=== PATIENT | female | born 1935 | race Caucasian/White ===

== ENCOUNTER 2024-05-15 01:55 | Inpatient (IN) | payer MEDICARE, BC, SELFPAY ==
[2024-05-15] VITALS (18 sets, daily range): BP systolic 110–196; BP diastolic 45–84; PULSE 64–78; RESP 16–24; TEMP 36.4–37.4; O2SAT 89–100; BMI 27.6
--- NOTE | ~2024-05-15 | XR_ITS ---
EXAMINATION: XR surgery orthopedic DATE: 05/15/2024 17:00 INDICATION: Intertrochanteric fracture of proximal left femur. TECHNIQUE: 4 intraoperative fluoroscopic views of left femur were obtained. I was not present. Fluoro scopy exposure time was 3 minutes 27 seconds. COMPARISON: Left hip radiographs 05/14/2024 FINDINGS: There is an intertrochanteric fracture of proximal left femur in near-anatomic alignment st atus post open reduction internal fixation with antegrade intramedullary lidia, femoral head/neck screw , and distal interlocking screw. There is mild left hip osteoarthritis. IMPRESSION: 1. Intertrochanteric fracture of proximal left femur status post open reduction internal fixation. 2. Mild left hip osteoarthritis. Reviewed, dictated and finalized at location A.
--- NOTE | 2024-05-15 01:40 | ADMGEN ---
This patient, Karla Powers, was admitted to 3 Med Surg Room 303-01. Patient/family oriented to hospital policies and general routines including ID bracelet, bed and alarms, visiting hours, pain management, procedures, bathroom and other care routines, personal items, smoking policy, room service/diet, and visiting hours. Information on how to activate the Rapid Response Team has been discussed. Patient/Family are encouraged to report perceived risks to care and to ask questions if they do not understand what they are told or what they should do.
--- NOTE | 2024-05-15 02:03 | PM.IMHP ---
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, wet, right eye CKD (chronic kidney disease) stage 3, GFR 30-59 ml/min Dental root implant present Essential hypertension GERD (gastroesophageal reflux disease) Gout Peripheral artery disease Skin cancer of face Surgical History Surgical History (Updated 05/15/24 @ 05:27 by Brenda Leon DO) History of appendectomy History of total abdominal hysterectomy and bilateral salpingo-oophorectomy Hx of cholecystectomy Status post cataract extraction of both eyes with insertion of intraocular lens Status post reverse arthroplasty of left shoulder (~2019) Family History Family History Sibling Colon polyp Cancer Hypertension Sibling Breast cancer Father Hypertension Mother Hypertension Social History Social History (Updated 05/15/24 @ 05:32 by Brenda Leon DO) Social History: She reports that she lives alone. She was twice 1st time for 48 for 6 years and she has been for about 16 years now. She is independent in all activities of daily living. She has 2 daughters and 2 sons. She also has 4 step children. She was a homemaker. She smoked 0.5 packs per cigarettes per day for 35 years but quit smoking in 1985. She denies any history of alcohol use or illicit substance use. Code status: DNR/DNI Healthcare power of tax associate attorney: Travis Butler (son) Smoking packs per day: 0.5 Smoking cigarettes per day: 10.0 Years smoked: 40 Smoking pack-years: 20.00 Smoking status: Former smoker Alcohol intake: never Do You Feel Safe in your Home?: Yes Lack of Transportation: No Lack of Food: Never True Current Housing: I Have Housing Concerned About Future Housing: No Difficulty Paying Gas/Electric Bills: No Difficulty Paying for Meds: No Currently Unemployed: No Education: High School Diploma/GED Difficulty w/ Childcare or Family Care: No Spiritual care concerns: No Meds Home Medications and Allergies Home Medications Medication Instructions Recorded Confirmed Type acetaminophen 650 mg tablet 650 mg PO Q8H PRN Pain 05/15/24 05/15/24 History allopurinol 300 mg tablet 300 mg PO DAILY 05/15/24 05/15/24 History clonidine HCl 0.1 mg tablet 0.1 mg PO DAILY 05/15/24 05/15/24 History hydrochlorothiazide 25 mg tablet 25 mg PO DAILY 05/15/24 05/15/24 History losartan 100 mg tablet 100 mg PO DAILY 05/15/24 05/15/24 History nebivolol 20 mg tablet 20 mg PO DAILY 05/15/24 05/15/24 History omeprazole 40 mg capsule,delayed 40 mg PO DAILY 05/15/24 05/15/24 History release spironolactone 25 mg tablet 25 mg PO DAILY 05/15/24 05/15/24 History vit C 250 mg-vit E 90 mg-zinc 40 1 tablet PO BID 05/15/24 05/15/24 History mg-copper 1 [id number] capsule (PreserVision AREDS-2) Allergies Allergy/AdvReac Type Severity Reaction Status Date / Time No Known Allergies Allergy Verified 05/15/24 01:21 Vital Signs Vital Signs - 24 hr 05/15/24 01:28 05/15/24 01:33 Temperature 98.9 F Pulse Rate 66 Respiratory Rate 16 Blood Pressure 184/58 H Pulse Oximetry 100 100 Oxygen Delivery Nasal Cannula Oxygen Flow Rate 2 Exam Narrative: Weight 75.3 kg BMI 27.6 Const: Other: Lying in bed with head of bed at 25-30 degrees, appears uncomfortable, otherwise well-developed well-nourished, appears stated age HENMT: Other: Head is normocephalic atraumatic, pupils are equal and reactive, mild scleral icterus, no conjunctival pallor, dental implants in place, mucous membran
[2024-05-15] MEDS: MORPHINE SULFATE (*CRX) 2 MG/ML INJ IV PUSH (02:41)
--- NOTE | 2024-05-15 02:46 | PC.NURSE ---
Pt brought from [facility] via EMS. Vizcaino catheter and 20g IV in RAC present on arrival. Pt CO pain in L hip once we moved her from the bed to the stretcher. Pt BP on arrival to the unit was documented 184/58. Pt laying on multiple extra blankets from EMS ride- attempted to turn patient to remove excess blankets but pt unable to tolerate due to pain. I asked pt if she was comfortable and she stated yes and that the extra blankets didn't bother her. Will attempt to remove them at a later time when pain is controlled.
[2024-05-15 03:24] LABS: Basophils Percent Auto 0.3 % (0.2-1.2); Eosinophils Percent Auto 0.2 % (0-4.4); Hematocrit 33.9 % (37.0-47.0); Hemoglobin 11.3 g/dL (12.0-15.0); Immature Granulocyte Percent A 0.8 % (0-0.5); Lymphocytes Absolute Auto 0.85 K/mm3 (0.9-3.2); Mean Corpuscular HGB Conc 33.3 g/dl (32-36); Mean Corpuscular Hemoglobin 32.6 pg (26-34); Mean Corpuscular Volume 97.7 fl (80-100); Mean Platelet Volume 9.6 fl (7.4-10.4); Monocytes Absolute Auto 0.9 K/mm3 (0.1-0.6); Monocytes Percent Auto 7.8 % (2.6-8.5); Neutrophils Absolute Auto 10.2 K/mm3 (1.3-6.7); Neutrophils Percent Auto 83.9 % (45.5-73.1); Platelet Count Result 177 k/mm3 (150-375); Red Blood Count 3.47 M/mm3 (4.2-5.4); Red Cell Distribution Width 13.6 % (11.5-14.5); White Blood Count 12.1 K/mm3 (4.5-10.0)
[2024-05-15 03:33] LABS: Anion Gap 7 mmol/L (4-12); Blood Urea Nitrogen 25 mg/dL (7-17); Calcium 9.5 mg/dL (8.4-10.2); Carbon Dioxide 26 mmol/L (22-30); Chloride 99 mmol/L (98-107); Estimated CRCL calculation 32 ml/min; Estimated Glomerular Filt Rate 47; Glucose 124 mg/dL (65-110); Potassium 4.9 mmol/L (3.4-5.0); Sodium 132 mmol/L (137-145)
[2024-05-15 03:35] LABS: Prothrombin Time 13.5 Seconds (11.1-14.7)
[2024-05-15 03:36] LABS: Partial Thromboplastin Time 28.8 Seconds (22.3-36.8)
[2024-05-15] MEDS: cloNIDine HCL 0.1 MG TABLET PO (05:37)
[2024-05-15] MEDS: hydrALAZINE HCL 20 MG/ML VIAL 10 MG IV PUSH ×2 (06:52→09:52)
--- NOTE | 2024-05-15 09:44 | PC.NURSE ---
RN called PRE-OP to ask the medication that the pt can get before sx and was informed that pt can get bystolic, iv hydralizine for elevated bp and Klonopin per Dr. Arriola for anxiety.
--- NOTE | 2024-05-15 09:47 | PC.NURSE ---
RN didn't give clonodine because pt got a one time dose in the morning from cabin supervisor for elevated BP
[2024-05-15] MEDS: HYDROcodone/acetaminophen (*CRX) 5-325 MG TABLET 1 TAB PO (09:49)
[2024-05-15] MEDS: NEBIVOLOL HCL 5 MG TABLET 20 MG PO (09:51)
--- NOTE | 2024-05-15 11:28 | PM.CNOR ---
Assessment and Plan Assessment and plan (1) Intertrochanteric fracture of left femur: Qualifiers: Encounter type: initial encounter Fracture type: closed Fracture alignment: displaced Qualified Code(s): S72.142A - Displaced intertrochanteric fracture of left femur, initial encounter for closed fracture Code(s): S72.142A - Displaced intertrochanteric fracture of left femur, initial encounter for closed fracture Status: Acute Plan EMILY IS S/P FALL TO THE LEFT HIP REGION AND NOW SHE HAS A DISPLACED LEFT INTER TROCHANTERIC FEMUR FRACTURE. SH WILL REQUIRE INSERTION OF TROCHANTERIC SHRAVAN WITH HIP SCREW ONCE SHE HAS BEEN CLEARED BY THE MEDICINE SERVICE. DISCUSSED NONOPERATIVE AND OPERATIVE TREATMENT OPTIONS WITH THE PATIENT. THE PATIENT'S QUESTIONS WERE ANSWERED. THE PATIENT DESIRES OPERATIVE TREATMENT. DISCUSSED ___INSERTION OF TROCHANTERIC FEMORAL SHRAVAN LEFT HIP. RISKS OF SURGERY INCLUDING BUT NOT LIMITED TO NEUROVASCULAR DAMAGE, WOUND COMPLICATIONS, BLOOD CLOT, PULMONARY EMBOLUS, STROKE, MD, ANESTHETIC RISKS UP TO AND INCLUDING WERE REVIEWED. CONTINUED PAIN AND POSSIBLE DYSFUNCTION WERE EXPLAINED. NO GUARANTEES WERE OFFERED. THE PATIENT UNDERSTANDS AND WISHES TO PROCEED. History of Present Illness HPI Consult date: 05/15/24 Chief complaint: left hip fracture mechanical Narrative: EMILY IS HERE FOR LEFT HIP PAIN SHE DEVELOPED AFTER FALLING TO THE GROUND. SHE HD LEFT HIP PAIN AND WAS SENT TO [facility]. SHE WAS TRANSFERRED TO [place] LAST EVENING AND DIAGNOSED WITH A LEFT INTER TROCHANTERIC HIP FRACTURE. SHE DENIES ANY OTHER PAIN OR LOC. HISTORY, EXAM AND RADIOGRAPHS REVIEWED WITH THE PATIENT. REFERRING PHYSICIAN RECORDS AND IMAGES REVIEWED. CONDITION, NATURE, ETIOLOGY AND COURSE OF NATURAL HISTORY REVIEWED. CONSERVATIVE AND OPERATIVE TREATMENT OPTIONS REVIEWED WELL THE RISKS AND BENEFITS OF EACH. 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, wet, right eye CKD (chronic kidney disease) stage 3, GFR 30-59 ml/min Dental root implant present Essential hypertension GERD (gastroesophageal reflux disease) Gout Peripheral artery disease Skin cancer of face Surgical History Surgical History History of appendectomy History of total abdominal hysterectomy and bilateral salpingo-oophorectomy Hx of cholecystectomy Status post cataract extraction of both eyes with insertion of intraocular lens Status post reverse arthroplasty of left shoulder (~2019) Family History Family History Sibling Colon polyp Cancer Hypertension Sibling Breast cancer Father Hypertension Mother Hypertension Social History Social History Social History: She reports that she lives alone. She was twice 1st time for 48 for 6 years and she has been for about 16 years now. She is independent in all activities of daily living. She has 2 daughters and 2 sons. She also has 4 step children. She was a homemaker. She smoked 0.5 packs per cigarettes per day for 35 years but quit smoking in 1985. She denies any history of alcohol use or illicit substance use. Code status: DNR/DNI Healthcare power of corporate attorney: Travis Butler (son) Smoking packs per day: 0.5 Smoking cigarettes per day: 10.0 Years smoked: 40 Smoking pack-years: 20.00 Smoking status: Former smoker Alcohol intake: never Do You Feel Safe in your Home?: Yes Lack of Transportation: No Lack of Food: Never True Current Housing: I Have Housing Concerned About Future Housing: No Difficulty Paying Gas/Electric
[2024-05-15] MEDS: clonazePAM (*CRX) 0.5 MG TABLET PO (12:16)
--- NOTE | 2024-05-15 12:36 | PM.IMPN ---
Progress Note: A&P Assessment and Plan (1) Intertrochanteric fracture of left femur: Qualifiers: Encounter type: initial encounter Fracture type: closed Fracture alignment: displaced Qualified Code(s): S72.142A - Displaced intertrochanteric fracture of left femur, initial encounter for closed fracture Code(s): S72.142A - Displaced intertrochanteric fracture of left femur, initial encounter for closed fracture Status: Acute Assessment and Plan: Pt sustained L intertrochanteric fracture Bp running slightly high this AM Control BP in Am IV hydralazine, clonidine, IV morphine and oral Klonopin on board Pt to have surgery this afternoon Orthopedics on board (2) CKD (chronic kidney disease) stage 3, GFR 30-59 ml/min: Qualifiers: Chronic kidney disease stage 3 subtype: stage 3a (GFR 45-59) Qualified Code(s): N18.31 - Chronic kidney disease, stage 3a Code(s): N18.30 - Chronic kidney disease, stage 3 unspecified Status: Acute Assessment and Plan: stable (3) Gout: Qualifiers: Gout site: unspecified site Gout etiology: unspecified cause Chronicity: chronic Presence of tophus: without tophus Qualified Code(s): M1A.9XX0 - Chronic gout, unspecified, without tophus (tophi) Code(s): M10.9 - Gout, unspecified Status: Acute Assessment and Plan: stable (4) Essential hypertension: Code(s): I10 - Essential (primary) hypertension Status: Acute Assessment and Plan: running high ? pain ? anxiety (5) GERD (gastroesophageal reflux disease): Qualifiers: Esophagitis presence: esophagitis presence not specified Qualified Code(s): K21.9 - Gastro-esophageal reflux disease without esophagitis Code(s): K21.9 - Gastro-esophageal reflux disease without esophagitis Status: Acute Assessment and Plan: protonix iv Subjective Date/time seen: 05/15/24 12:36 Interval history: 89-year-old female with past medical history of essential hypertension, gout, GERD, chronic kidney disease and peripheral vascular disease sustained Intertrochanteric fracture of left femur Blood pressures running high this morning pt given iv hydralazine for high blood pressures Review of Systems Review of Systems: L hip pain no other specific issues Exam Narrative: Weight 75.3 kg BMI 27.6 Const: Other: Lying in bed with head of bed at 25-30 degrees, appears uncomfortable, otherwise well-developed well-nourished, appears stated age HENMT: Other: Head is normocephalic atraumatic, pupils are equal and reactive, mild scleral icterus, no conjunctival pallor, dental implants in place, mucous membranes are dry, crowded posterior oropharynx Eyes: Other: Mild scleral icterus, no conjunctival pallor Neck: Other: Mild cervical lordosis, supple, large neck circumference Resp: Other: Clear to auscultation bilaterally, no increased work of breathing Cardio: Other: 2/6 systolic murmur heard best over the left upper sternal border, no JVD, 2+ bilateral radial pedal pulses GI: Other: Soft, nontender, slightly distended, normoactive bowel sounds : Other: Vizcaino catheter in place with approximately 600 mL of slightly cloudy pale yellow urine Skin: Other: Skin tear to the left proximal lateral forearm with Coban covering, scab about the size of a half dollar to the right anterior hernández chronic skin thickening and changes of bilateral lower extremities circumferential, no erythema, no warmth, wound to the left 5th old, no erythema or drainage Neuro: Other: Alert orient x4, speech is clear, no facial asymmetry, no localizing neurologic deficits noted during the course of conversation Extrem: Other: Left lower extremity is flexed at the knee externally rotated and shortened, distal extremity is neurovascularly intact, age-related arthritic changes noted to b
--- NOTE | 2024-05-15 15:05 | PC.NURSE ---
Pt was picked up by surgery and is not in room
[2024-05-15] MEDS: LACTATED RINGERS 1,000 ML 30 ML IV CONT (15:30)
--- NOTE | 2024-05-15 15:30 | WPDANESEPPF ---
Anes - Initial Pre Proc Eval Procedure: Operation Date: 05/15/24 16:30 Proposed Procedures p Trochanteric Femoral Nail Left Hip - Brian Montesinos MD Date/Time: 05/15/24 15:30 Surgeon: Brenda Leon DO Pre Op Diagnosis: left hip fracture mechanical Patient Data Age: 89 Gender: F Height: 1.65 m Weight: 75.3 kg Last Vital Signs Temp 36.6 C 05/15/24 14:00 Pulse 64 05/15/24 14:00 Resp 20 05/15/24 14:00 BP 152/46 H 05/15/24 14:00 Pulse Ox 99 05/15/24 14:00 O2 Del Method Nasal Cannula 05/15/24 08:00 O2 Flow Rate 2 05/15/24 08:00 Allergies Allergy/AdvReac Type Severity Reaction Status Date / Time No Known Allergies Allergy Verified 05/15/24 01:21 Home Medications Medication Instructions Recorded Confirmed Type acetaminophen 650 mg tablet 650 mg PO Q8H PRN Pain 05/15/24 05/15/24 History allopurinol 300 mg tablet 300 mg PO DAILY 05/15/24 05/15/24 History clonidine HCl 0.1 mg tablet 0.1 mg PO DAILY 05/15/24 05/15/24 History hydrochlorothiazide 25 mg tablet 25 mg PO DAILY 05/15/24 05/15/24 History losartan 100 mg tablet 100 mg PO DAILY 05/15/24 05/15/24 History nebivolol 20 mg tablet 20 mg PO DAILY 05/15/24 05/15/24 History omeprazole 40 mg capsule,delayed 40 mg PO DAILY 05/15/24 05/15/24 History release spironolactone 25 mg tablet 25 mg PO DAILY 05/15/24 05/15/24 History vit C 250 mg-vit E 90 mg-zinc 40 1 tablet PO BID 05/15/24 05/15/24 History mg-copper 1 [id number] capsule (PreserVision AREDS-2) Laboratory Tests 05/15/24 05/15/24 03:16 03:16 WBC 12.1 H K/mm3 (4.5-10.0) RBC 3.47 L M/mm3 (4.2-5.4) Hgb 11.3 L g/dL (12.0-15.0) Hct 33.9 L % (37.0-47.0) MCV 97.7 fl (80-100) MCH 32.6 pg (26-34) MCHC 33.3 g/dl (32-36) RDW 13.6 % (11.5-14.5) Plt Count 177 k/mm3 (150-375) MPV 9.6 fl (7.4-10.4) Immature Gran % (Auto) 0.8 H % (0-0.5) Neut % (Auto) 83.9 H % (45.5-73.1) Lymph % (Auto) 7.0 L % (18.3-44.2) Pitkin % (Auto) 7.8 % (2.6-8.5) Eos % (Auto) 0.2 % (0-4.4) Baso % (Auto) 0.3 % (0.2-1.2) Lymph # (Auto) 0.85 L K/mm3 (0.9-3.2) Pitkin # (Auto) 0.9 H K/mm3 (0.1-0.6) Eos # (Auto) 0.0 K/mm3 (0-0.3) Baso # (Auto) 0.0 K/mm3 (0.0-0.1) Abs Immat Gran (auto) 0.10 H K/mm3 (0.00-0.031) Absolute Neuts (auto) 10.2 H K/mm3 (1.3-6.7) Absolute Nucleated RBC 0.000 K/mm3 (0.0-0.012) Nucleated RBC % 0.0 % (0.0-0.2) PT 13.5 Seconds (11.1-14.7) INR 1.0 APTT 28.8 Seconds Cancelled (22.3-36.8) Sodium 132 L mmol/L (137-145) Potassium 4.9 mmol/L (3.4-5.0) Chloride 99 mmol/L (98-107) Carbon Dioxide 26 mmol/L (22-30) Anion Gap 7 mmol/L (4-12) BUN 25 H mg/dL (7-17) Creatinine 1.10 H mg/dL (0.7-1.0) Estim Creat Clear Calc 32 ml/min Estimated GFR 47 L (59 - ) Glucose 124 H mg/dL (65-110) Calcium 9.5 mg/dL (8.4-10.2) Patient hx anesthesia problems: none Family hx anesthesia problems: none Results Review: All pre-operative results and documents have been reviewed as part of the pre-operative evaluation. 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
[2024-05-15] MEDS: ceFAZolin SODIUM 1 GM VIAL 2 GM IV PUSH (16:28)
--- NOTE | 2024-05-15 17:14 | P.OP_ITS ---
Procedure Note - Detailed Date of Procedure 05/15/24 Pre-op Diagnosis left hip fracture mechanical Post-op Diagnosis Same Procedure Performed INSERTION OF TROCHANTERIC SHRAVAN LEFT HIP Surgeon Brian Montesinos MD Anesthesia General Description of Procedure THE PATIENT WAS TAKEN TO THE OPERATING ROOM AND PLACED ON A FRACTURE TABLE AFTER GIVEN GENERAL ANESTHESIA. THE LEFT LOWER EXTREMITY WAS PLACED IN A TRACTION BOOT AND USING SOME TRACTION AND INTERNAL ROTATION THE INNER TROCHANTERIC FRACTURE WAS REDUCED TO ANATOMIC POSITION. NEXT THE LEFT LOWER EXTREMITY WAS PREPPED AND DRAPED IN THE STERILE FASHION. AN INCISION WAS MADE PROXIMAL TO THE TIP OF THE GREATER TROCHANTER AND DISSECTION CONTINUED TILL THE TIP OF THE GREATER TROCHANTER WAS PALPATED. A GUIDE PIN WAS PLACED DOWN THE FEMORAL CANAL AND PAST THE FRACTURE SITE. THIS WAS CHECKED ON FLUOROSCOPY AND FOUND TO BE IN GOOD POSITION. AN INITIAL REAMER WAS USED TO REAM THE FEMORAL CANAL. A 11 BY 200 MM ARTHREX TROCHANTERIC FEMORAL SHRAVAN WAS INSERTED TILL THE CORRECT POSITION WAS IDENTIFIED ON XRAY. A GUIDE PIN WAS INSERTED THROUGH THE FEMORAL NECK AT 130 DEG ANGLE TILL IT REACHED THE TIP OF THE SUB CHONDRAL BONE SEEN ON XRAY. AFTER REAMING, LAG SCREW WAS INSERTED MEASURING 95 MM. XRAYS SHOWED IT TO BE IN GOOD POSITION. THE LAG SCREW WAS LOCKED PROXIMALLY WITH A LOCKING SCREW. NEXT A DISTAL LOCKING SCREW WAS PLACED ACROSS THE SHRAVAN AND WAS IN GOOD POSITION ON XRAY. THE TRACTION WAS RELEASED. THE WOUNDS WERE WASHED. THE DEEP FASCIA WAS REPA IRED WITH 0 VICRYL SUTURE, THE SUB CUTANEOUS LAYER WITH 2-0 VICRYL, AND THE SKIN WITH RENETTA. THE WOUNDS WERE WASHED AND THEN STERILE DRESSING WAS APPLIED. PATIENT WAS EXTUBATED AND SENT TO RECOVERY ROOM. Estimated Blood Loss 100 Urine Output 700 Complications No immediate complications Condition Stable Disposition PACU
[2024-05-15] MEDS: fentaNYL CITRATE INJ (*CRX) 100 MCG/2 ML VIAL 25 MCG IV PUSH ×3 (17:26→17:48)
--- NOTE | 2024-05-15 18:40 | PC.NURSE ---
Pt has returned from surgery.
[2024-05-15] MEDS: FAMOTIDINE 20 MG TABLET PO (20:44)
[2024-05-15] MEDS: oxyCODONE/ACETAMINOPHEN (*CRX) 5-325 MG TABLET 1 TABLET PO (20:45)
[2024-05-16] VITALS (9 sets, daily range): BP systolic 120–180; BP diastolic 46–73; PULSE 61–87; RESP 16–20; TEMP 36.4–37.2; O2SAT 93–100
--- NOTE | 2024-05-16 | ECHOL_ITS ---
Patient Info Name: Karla Powers Age: 89 years : 1935 Gender: Female Ht: 65 in Wt: 166 lbs BSA: 1.88 m2 HR: 61 bpm BP: 126 / 46 mmHg Heart Rhythm: Sinus Rhythm Technical Quality: Fair Exam Date: 05/16/2024 1:40 PM Exam Location: Echo Lab Patient Status: Inpatient Admit Date: 05/15/2024 Staff Ordering Physician: Francia Arriola MD Protohistorian: Karolina Tovar RDCS Attending Provider: Brenda Leon DO Referring Physician: Zeinab BARKLEY; Exam Type: CA echo limited Study Info Indications - elevated bp Complete two-dimensional, color flow and Doppler transthoracic echocardiogram is performed. Summary 1. Technically difficult study with limited views due to poor patient cooperation. 2. The left ventricular diastolic function is grade I diastolic dysfunction. 3. Left atrial chamber dimension is moderately enlarged. 4. Right atrial chamber dimension is moderately enlarged. 5. There is moderate tricuspid valve regurgitation. 6. There is small anterior pericardial effusion. Left Ventricle Left ventricular chamber dimension is normal. Left ventricular systolic function is normal, estimated at 65-70%. There is no increased left ventricular wall thickness. The left ventricular diastolic function is grade I diastolic dysfunction. Right Ventricle Right ventricular chamber dimension is not well visualized. Left Atria Left atrial chamber dimension is moderately enlarged. Right Atria Right atrial chamber dimension is moderately enlarged. Atrial Septum Intact interatrial septum visualized by color flow imaging. Aortic Valve The aortic valve is probable trileaflet. There is no aortic valve stenosis. There is no aortic valve regurgitation. There is mild aortic valve calcification. Pulmonic Valve The pulmonic valve is not well visualized. Mitral Valve There is trace mitral valve regurgitation. Tricuspid Valve There is moderate tricuspid valve regurgitation. Pericardium/Pleural There is small anterior pericardial effusion. Inferior Vena Cava Inferior vena cava is not well visualized. Aorta The aortic root size at the sinus of Valsalva is normal. Left Ventricular Outflow Tract Name Value Normal LVOT 2D LVOT Diameter 2.0 cm LVOT Doppler LVOT Peak Gradient 4 mmHg LVOT Mean Gradient 2 mmHg LVOT VTI 21 cm LVOT VTI/AV VTI Ratio 0.8 LVOT Stroke Volume 63 ml LVOT CO 4.4 l/min LVOT CI 2.4 l/min/m2 Pulmonic Valve Name Value Normal RVOT Doppler RVOT Peak Gradient 3 mmHg PV Doppler PV Peak Gradient 6 mmHg Mitral Valve Nam
[2024-05-16] MEDS: hydrALAZINE HCL 20 MG/ML VIAL 10 MG IV PUSH (00:30)
[2024-05-16] MEDS: ceFAZolin 2 GM/D5W 50 ML 2 GM/50 ML BAG IVPB ×3 (00:34→16:52)
[2024-05-16] MEDS: diphenhydrAMINE HCl INJ 50 MG/ML VIAL 25 MG IV PUSH ×3 (01:20→14:21)
[2024-05-16] MEDS: SODIUM CHLORIDE 0.9% IV 1,000 ML 125 ML IV CONT ×2 (01:21→14:15)
[2024-05-16] MEDS: HYDROmorphone HCL INJ (*CRX) 1 MG/ML SYR IV PUSH ×4 (02:49→22:52)
[2024-05-16 06:46] LABS: Hematocrit 34.4 % (37.0-47.0); Mean Corpuscular Hemoglobin 32.2 pg (26-34); Mean Corpuscular Volume 100.6 fl (80-100); Mean Platelet Volume 10.3 fl (7.4-10.4); Platelet Count Result 203 k/mm3 (150-375); Red Blood Count 3.42 M/mm3 (4.2-5.4); Red Cell Distribution Width 14.2 % (11.5-14.5); White Blood Count 14.9 K/mm3 (4.5-10.0)
[2024-05-16 07:01] LABS: Anion Gap 12 mmol/L (4-12); Blood Urea Nitrogen 30 mg/dL (7-17); Calcium 9.3 mg/dL (8.4-10.2); Carbon Dioxide 23 mmol/L (22-30); Chloride 99 mmol/L (98-107); Estimated CRCL calculation 25 ml/min; Estimated Glomerular Filt Rate 35; Glucose 129 mg/dL (65-110); Potassium 4.2 mmol/L (3.4-5.0); Sodium 134 mmol/L (137-145)
--- NOTE | 2024-05-16 09:31 | PM.PNORT ---
Progress Note: A&P Assessment and Plan (1) Intertrochanteric fracture of left femur: Qualifiers: Encounter type: initial encounter Fracture type: closed Fracture alignment: displaced Qualified Code(s): S72.142A - Displaced intertrochanteric fracture of left femur, initial encounter for closed fracture Code(s): S72.142A - Displaced intertrochanteric fracture of left femur, initial encounter for closed fracture Status: Acute Assessment and Plan: POD #1 : INSERTION OF TROCHANTERIC SHRAVAN LEFT HIP PT/OT once mentation is improved. TTWB. Walker. HIGH FALL RISK. Continue pain control. Ice hip. Protect skin. DVT prophylaxis with Arixtra. Possible transition to oral at d/c. SCDs. Incentive Spirometry Use reviewed. Monitor Dressing. Change prior to discharge. Bowel Regimen. Dispo: KEITH Plan Reviewed history, exam, radiographs and current labs with attending MD and covering surgeon, Dr. Montesinos, who agrees with current plan as indicated above. No further recommendations from Dr. Montesinos at this time. Subjective Subjective Date/Time Seen: 05/16/24 09:31 Post Op day: 1 Interval history: POD #1: INSERTION OF TROCHANTERIC SHRAVAN LEFT HIP Patient awakens to voice. Confused, disoriented. Per family, she has been complaining of itching overnight and today. Agitated, pulling at clothing. Review of Systems Review of Systems: ROS unobtainable: Yes unobtainable due to mental status Exam Const: General: comfortable and in distress mild (itching ) Resp: Other: On 2 L NC Cardio: Rate: regular rate Rhythm: regular rhythm GI: GI Palp: Yes Soft to palpation and No Tenderness to palpation present (GI) Auscultation: normal bowel sounds Extrem: Left lower extremity: hip/thigh Details: tenderness Location: of the hip Location: laterally, swelling (lateral ) Location: of the hip and abnormal ROM (limited due to mentation ) and knee (effusion/bruising) Details: swelling Objective Data Vital Signs Vital Signs: Vital Signs - 24 hr 05/15/24 09:51 05/15/24 14:00 05/15/24 15:20 Temperature 36.6 C 36.6 C Pulse Rate 68 64 66 Respiratory Rate 20 18 Blood Pressure 152/46 H 142/60 H Pulse Oximetry 99 98 Oxygen Delivery Nasal Cannula Oxygen Flow Rate 2 05/15/24 17:19 05/15/24 17:45 05/15/24 18:00 Temperature 37.3 C Pulse Rate 76 78 76 Respiratory Rate 19 18 16 Blood Pressure 155/60 H 173/64 H 172/64 H Pulse Oximetry 95 89 L 91 Oxygen Delivery Simple Face Mask Nasal Cannula Nasal Cannula Oxygen Flow Rate 6 4 4 05/15/24 18:15 05/15/24 18:30 05/15/24 17:30 Temperature 36.5 C Pulse Rate 76 74 75 Respiratory Rate 16 16 18 Blood Pressure 160/55 H 153/50 H 169/62 H Pulse Oximetry 93 93 95 Oxygen Delivery Nasal Cannula Nasal Cannula Simple Face Mask Oxygen Flow Rate 3 3 6 05/15/24 19:00 05/15/24 19:30 05/15/24 20:30 Temperature 36.5 C 36.4 C L 36.4 C L Pulse Rate 78 76 76 Respiratory Rate 18 18 18 Blood Pressure 110/45 L 176/60 H 172/70 H Pulse Oximetry 100 95 95 Oxygen Delivery Oxygen Flow Rate 05/16/24 00:30 05/16/24 04:23 05/16/24 08:23 Temperature 36.6 C 36.4 C 37.0 C Pulse Rate 73 79 72 Respiratory Rate 18 18 16 Blood Pressure 178/72 H 154/68 H 180/66 H Pulse Oximetry 95 95 100 Oxygen Delivery Oxygen Flow Rate Intake/Output Intake/Output: Intake & Output 05/13/24 05/14/24 05/15/24 05/16/24 23:59 23:59 23:59 23:59 Intake Total 100 240 Output Total 1600 150 Balance -1500 90 Meds/Results Medications: Active Medications Generic Name Dose Route Start Last Admin Trade Name Freq PRN Reason Stop Dose Admin Acetaminophen 650 mg 05/15/24 01:55 Acetaminophen 325 Mg Tablet PO Q4H PRN Mild Pain (1-3) or Fever Acetaminophen 500 mg 05/15/24 18:38 Acetaminophen 500 Mg Tablet PO Q6H PRN Pain Rated 1-3 Al Hydrox/Mg Hydrox/Simethicone 30 ml 05/15/24 01:55 Mag Hydrox/Al Hydrox/Simeth 30 Ml Udc P
--- NOTE | 2024-05-16 09:45 | PCPTNOTE ---
attempted PT eval, pt able to answer to her name but is disoriented to place/time/situation, unable to follow simple commands, will follow as pt becomes more alert
[2024-05-16] MEDS: NEBIVOLOL HCL 5 MG TABLET 20 MG PO (10:06)
[2024-05-16] MEDS: amLODIPine BESYLATE 2.5 MG, amLODIPine BESYLATE 5 MG 7.5 MG PO (10:07)
[2024-05-16] MEDS: LOSARTAN POTASSIUM 100 MG TABLET PO (10:07)
[2024-05-16] MEDS: polyethylene glycoL 3350 17 GM POWD.PACK PO (10:08)
[2024-05-16] MEDS: SPIRONOLACTONE 25 MG TABLET PO (10:08)
[2024-05-16] MEDS: OPTI-GEN TAB 1 TABLET PO (10:08)
[2024-05-16] MEDS: DOCUSATE SODIUM 100 MG CAPSULE PO (10:08)
[2024-05-16] MEDS: hydroCHLOROthiazide 25 MG TABLET PO (10:08)
[2024-05-16] MEDS: cloNIDine HCL 0.1 MG TABLET PO (10:08)
[2024-05-16] MEDS: FAMOTIDINE 20 MG TABLET PO ×2 (10:08→20:40)
[2024-05-16] MEDS: SENNA/DOCUSATE SODIUM TABLET 2 TAB PO (10:09)
[2024-05-16] MEDS: allopurinoL 300 MG TABLET PO (10:09)
[2024-05-16] MEDS: FONDAPARINUX SODIUM 2.5 MG/0.5 ML SYRINGE SUB-Q (10:09)
--- NOTE | 2024-05-16 13:05 | PM.IMPN ---
Progress Note: A&P Assessment and Plan (1) Intertrochanteric fracture of left femur: Qualifiers: Encounter type: initial encounter Fracture type: closed Fracture alignment: displaced Qualified Code(s): S72.142A - Displaced intertrochanteric fracture of left femur, initial encounter for closed fracture Code(s): S72.142A - Displaced intertrochanteric fracture of left femur, initial encounter for closed fracture Status: Acute Assessment and Plan: Pt sustained L intertrochanteric fracture post op day 1 INSERTION OF TROCHANTERIC FEMORAL SHRAVAN LEFT HIP. BLood pressures better today Continue IV hydralazine, clonidine, IV morphine and oral hydroxyzine Orthopedics on board Continue PT/OT/Pain control (2) CKD (chronic kidney disease) stage 3, GFR 30-59 ml/min: Qualifiers: Chronic kidney disease stage 3 subtype: stage 3a (GFR 45-59) Qualified Code(s): N18.31 - Chronic kidney disease, stage 3a Code(s): N18.30 - Chronic kidney disease, stage 3 unspecified Status: Acute Assessment and Plan: stable (3) Gout: Qualifiers: Gout site: unspecified site Gout etiology: unspecified cause Chronicity: chronic Presence of tophus: without tophus Qualified Code(s): M1A.9XX0 - Chronic gout, unspecified, without tophus (tophi) Code(s): M10.9 - Gout, unspecified Status: Acute Assessment and Plan: stable (4) Essential hypertension: Code(s): I10 - Essential (primary) hypertension Status: Acute Assessment and Plan: running high ? pain ? anxiety order Echo Bp are better today continue spironolactone and clonidine, nebivolol (5) GERD (gastroesophageal reflux disease): Qualifiers: Esophagitis presence: esophagitis presence not specified Qualified Code(s): K21.9 - Gastro-esophageal reflux disease without esophagitis Code(s): K21.9 - Gastro-esophageal reflux disease without esophagitis Status: Acute Assessment and Plan: protonix oral Plan DVT prop: Pt is on fondaparinux Subjective Date/time seen: 05/16/24 13:05 Interval history: 89-year-old female with past medical history of essential hypertension, gout, GERD, chronic kidney disease and peripheral vascular disease sustained Intertrochanteric fracture of left femur pt is post op day 1 INSERTION OF TROCHANTERIC FEMORAL SHRAVAN LEFT HIP. BP improving today will order ECHO due to high Bps on admission Continue routine post operative care Review of Systems Review of Systems: No specific complaints post op day 1 Exam Const: General: cooperative, healthy appearing and overweight; No in distress Nutritional Appearance: overweight Orientation/consciousness: oriented to person HENMT: Head: normal to inspection Eyes: Other: Mild scleral icterus, no conjunctival pallor Resp: Effort & Inspection: no respiratory distress Auscultation: no rhonchi and no wheezes Other: Clear to auscultation bilaterally, no increased work of breathing Cardio: Rate: regular rate Rhythm: regular rhythm Other: 2/6 systolic murmur heard best over the left upper sternal border, no JVD, 2+ bilateral radial pedal pulses GI: Inspection: normal to inspection GI Palp: No abdominal tenderness, No Guarding due to palpation present (GI) and No Hepatomegaly present Auscultation: normal bowel sounds Other: Soft, nontender, slightly distended, normoactive bowel sounds : Other: Vizcaino catheter in place with approximately 600 mL of slightly cloudy pale yellow urine Neuro: General: oriented to person Other: Alert orient x4, speech is clear, no facial asymmetry, no localizing neurologic deficits noted during the course of conversation Extrem: Other: Sp hip surgery Psych: Other: Appropriate mood and affect, pleasant and cooperative, judgment and insight intact Objective Data Vital Signs Vital Signs: Vital S
[2024-05-16 13:53] LABS: Add Urine Microscopic? YES; Appearance Urine Cloudy (Clear); Bacteria Urine None Seen /hpf; Bilirubin Urine Negative (Negative); Blood Urine Negative (Negative); Color Urine Yellow (Yellow); Glucose Urine UA Negative (Negative); Ketones Urine Negative (Negative); Leukocyte Esterase Ur 2+ LEU/UL (Negative); Need Manual Microscopic Reviewed; Nitrate Urine Negative (Negative); Protein Urine 1+ mg/dL (Negative); Specific Grav Ur 1.024 (1.001-1.035); Squamous Epithelial Cell Urine Occasional /hpf (Few); Urobilinogen Urine 0.2 mg/dL (<2.0); WBC Urine 21-50 /hpf (0-3)
--- NOTE | 2024-05-16 14:27 | PCOTNOTE ---
Attempted to see pt. for occupational therapy evaluation. Pt. is currently not alert or oriented enough to safely participate in evaluation. Pt. difficult to arouse, nursing aware. Following.
--- NOTE | 2024-05-16 15:55 | PCPTNOTE ---
attempted PT eval 3x today, pt too drowsy to participate, will follow
--- NOTE | 2024-05-16 18:21 | PC.NURSE ---
RN wasn't able to give 1700 MEDS because pt was extremely drowsy and too sleepy to take her medication
[2024-05-16] MEDS: diazePAM (*CRX) 5 MG TABLET PO (22:52)
[2024-05-17 00:53] VITALS: BP 137/45; PULSE 72; RESP 16; TEMP 36.3; O2SAT 94
[2024-05-17 05:55] LABS: Hematocrit 31.4 % (37.0-47.0); Hemoglobin 10.1 g/dL (12.0-15.0); Mean Corpuscular HGB Conc 32.2 g/dl (32-36); Mean Corpuscular Volume 99.4 fl (80-100); Mean Platelet Volume 10.6 fl (7.4-10.4); Platelet Count Result 175 k/mm3 (150-375); Red Blood Count 3.16 M/mm3 (4.2-5.4); Red Cell Distribution Width 14.3 % (11.5-14.5); White Blood Count 14.9 K/mm3 (4.5-10.0)
[2024-05-17 06:00] VITALS: BP 157/60; PULSE 86; RESP 18; TEMP 36.5; O2SAT 96
[2024-05-17 06:09] LABS: Anion Gap 8 mmol/L (4-12); Blood Urea Nitrogen 43 mg/dL (7-17); Calcium 9.4 mg/dL (8.4-10.2); Carbon Dioxide 25 mmol/L (22-30); Chloride 102 mmol/L (98-107); Estimated CRCL calculation 27 ml/min; Estimated Glomerular Filt Rate 39; Glucose 125 mg/dL (65-110); Potassium 4.3 mmol/L (3.4-5.0); Sodium 135 mmol/L (137-145)
[2024-05-17 08:00] VITALS: BP 152/64; PULSE 76; PULSE 77; RESP 18; TEMP 36.2; O2SAT 93
[2024-05-17] MEDS: ACETAMINOPHEN 500 MG TABLET PO ×2 (08:30→18:03)
[2024-05-17] MEDS: allopurinoL 300 MG TABLET PO (08:31)
[2024-05-17] MEDS: clonazePAM (*CRX) 0.5 MG TABLET PO (08:31)
[2024-05-17 08:39] VITALS: BMI 11.0
--- NOTE | 2024-05-17 09:02 | PM.IMPN ---
Progress Note: A&P Assessment and Plan (1) Intertrochanteric fracture of left femur: Qualifiers: Encounter type: initial encounter Fracture alignment: displaced Fracture type: closed Qualified Code(s): S72.142A - Displaced intertrochanteric fracture of left femur, initial encounter for closed fracture Code(s): S72.142A - Displaced intertrochanteric fracture of left femur, initial encounter for closed fracture Status: Acute (2) CKD (chronic kidney disease) stage 3, GFR 30-59 ml/min: Qualifiers: Chronic kidney disease stage 3 subtype: stage 3a (GFR 45-59) Qualified Code(s): N18.31 - Chronic kidney disease, stage 3a Code(s): N18.30 - Chronic kidney disease, stage 3 unspecified Status: Acute (3) Gout: Qualifiers: Chronicity: chronic Gout etiology: unspecified cause Gout site: unspecified site Presence of tophus: without tophus Qualified Code(s): M1A.9XX0 - Chronic gout, unspecified, without tophus (tophi) Code(s): M10.9 - Gout, unspecified Status: Acute (4) Essential hypertension: Code(s): I10 - Essential (primary) hypertension Status: Acute (5) GERD (gastroesophageal reflux disease): Qualifiers: Esophagitis presence: esophagitis presence not specified Qualified Code(s): K21.9 - Gastro-esophageal reflux disease without esophagitis Code(s): K21.9 - Gastro-esophageal reflux disease without esophagitis Status: Acute Plan This is an 89-year-old female who presented with mechanical fall. Patient sustained left intertrochanteric fracture orthopedic was consulted. Underwent insertion of trochanteric lidia left hip on 05/15/2024. Postop delirium multiple medications including benzodiazepines and opiates will taper off. Ibuprofen p.r.n.. Tylenol p.r.n. also found to have UTI Hypertension on clonidine IV hydralazine p.r.n. spironolactone nebivolol. UTI will start ceftriaxone CKD stage 3 Gout GERD DVT prop: Pt is on fondaparinux not able to take oral will substitute with subQ Lovenox for now Code status do not resuscitate Disposition: Planned KEITH Subjective Date/time seen: 05/17/24 09:02 Interval history: Patient has been confused. Complains of pain in the left hip. Postop day 2 Review of Systems Review of Systems: ROS unobtainable: Yes unobtainable due to mental status Exam Narrative: GENERAL: The patient is well developed, not in acute distress HEENT: Nonicteric sclerae, PERRLA, EOMI. Oropharynx clear. Moist mucous membranes. Conjunctivae appear well perfused. CHEST: Chest wall is nontender. HEART: Regular rate and rhythm without murmur, rubs, or gallops LUNGS: Clear to auscultation bilaterally. no respiratory distress ABDOMEN: Soft, positive bowel sounds, non-tender, no organomegaly. SKIN: No rash, no excessive bruising, petechiae, or purpura. NEUROLOGIC: Cranial nerves II-XII intact, alert and awake verbalizes some, no self not oriented to time and place no gross motor deficits EXTREMITIES: no edema, cyanosis or clubbing Objective Data Vital Signs Vital Signs: Vital Signs - 24 hr 05/16/24 10:06 05/16/24 11:05 05/16/24 12:23 Temperature 98.2 F Pulse Rate 87 61 Respiratory Rate 16 Blood Pressure 126/46 L Pulse Oximetry 98 98 Oxygen Delivery Nasal Cannula Oxygen Flow Rate 2 05/16/24 16:23 05/16/24 20:23 05/17/24 00:53 Temperature 98.9 F 97.5 F L 97.4 F L Pulse Rate 71 75 72 Respiratory Rate 20 16 16 Blood Pressure 120/58 L 147/73 H 137/45 L Pulse Oximetry 96 93 94 Oxygen Delivery Oxygen Flow Rate 05/17/24 06:00 Temperature 97.7 F Pulse Rate 86 Respiratory Rate 18 Blood Pressure 157/60 H Pulse Oximetry 96 Oxygen Delivery Oxygen Flow Rate Intake/Output Intake/Output: Intake & Output 05/14/24 05/15/24 05/16/24 05/17/24 23:59 23:59 23:59 23:59 Intake Total 100 1340 Output Total 1600 450 400 Balance -1500 890 -400 Meds/Results Medications
--- NOTE | 2024-05-17 09:10 | PC.NURSE ---
RN talked to Dr. Dougherty at 900 and informed him of pt being axo 0 and RN being unable to administer morning her anxiety medication as well as her tylenol po for pain. Pt is very sleepy and confused and kept calling out for her dad when we tried to assess or get her vitals
[2024-05-17] MEDS: IBUPROFEN IV 800 MG/200 ML 800 MG/200 ML BAG 400 MG IVPB ×2 (09:37→21:31)
--- NOTE | 2024-05-17 10:13 | PM.PNORT ---
Progress Note: A&P Assessment and Plan (1) Intertrochanteric fracture of left femur: Qualifiers: Encounter type: initial encounter Fracture type: closed Fracture alignment: displaced Qualified Code(s): S72.142A - Displaced intertrochanteric fracture of left femur, initial encounter for closed fracture Code(s): S72.142A - Displaced intertrochanteric fracture of left femur, initial encounter for closed fracture Status: Acute Assessment and Plan: POD #2: INSERTION OF TROCHANTERIC SHRAVAN LEFT HIP PT/OT once mentation is improved. TTWB. Walker. HIGH FALL RISK. Continue pain control. HOLD Narcotics until improvement in mentation. IV ibuprofen available. Tylenol suppository as well in the event unable to tolerate PO intake. Ice hip. Protect skin. DVT prophylaxis with Arixtra. Possible transition to oral at d/c. SCDs. Incentive Spirometry Use reviewed. Monitor Dressing. Change prior to discharge. Bowel Regimen. Dispo: KEITH (2) UTI (urinary tract infection): Code(s): N39.0 - Urinary tract infection, site not specified Status: Acute Assessment and Plan: Culture pending Plan Reviewed history, exam, radiographs and current labs with attending MD and covering surgeon, Dr. Montesinos, who agrees with current plan as indicated above. No further recommendations from Dr. Montesinos at this time. Subjective Subjective Date/Time Seen: 05/17/24 10:13 Post Op day: 2 Interval history: POD #2: INSERTION OF TROCHANTERIC SHRAVAN LEFT HIP Patient awakens to voice. Confused, disoriented. Minimal improvement from POD #1. No notable signs of itching in comparison to POD #1. Review of Systems Review of Systems: ROS unobtainable: Yes unobtainable due to mental status Exam Const: General: comfortable and in distress mild (itching ) Resp: Other: On 2 L NC Cardio: Rate: regular rate Rhythm: regular rhythm GI: GI Palp: Yes Soft to palpation and No Tenderness to palpation present (GI) Auscultation: normal bowel sounds Extrem: Left lower extremity: hip/thigh Details: tenderness Location: of the hip Location: laterally, swelling (lateral ) Location: of the hip and abnormal ROM (limited due to mentation ) and knee (effusion/bruising) Details: swelling Objective Data Vital Signs Vital Signs: Vital Signs - 24 hr 05/16/24 11:05 05/16/24 12:23 05/16/24 16:23 Temperature 36.8 C 37.2 C Pulse Rate 61 71 Respiratory Rate 16 20 Blood Pressure 126/46 L 120/58 L Pulse Oximetry 98 98 96 Oxygen Delivery Nasal Cannula Oxygen Flow Rate 2 05/16/24 20:23 05/17/24 00:53 05/17/24 06:00 Temperature 36.4 C L 36.3 C L 36.5 C Pulse Rate 75 72 86 Respiratory Rate 16 16 18 Blood Pressure 147/73 H 137/45 L 157/60 H Pulse Oximetry 93 94 96 Oxygen Delivery Oxygen Flow Rate 05/17/24 08:19 05/17/24 08:39 05/17/24 08:00 Temperature 36.2 C L Pulse Rate 77 Respiratory Rate 18 Blood Pressure 152/64 H Pulse Oximetry 93 Oxygen Delivery Nasal Cannula Nasal Cannula Oxygen Flow Rate 2 2 Intake/Output Intake/Output: Intake & Output 05/14/24 05/15/24 05/16/24 05/17/24 23:59 23:59 23:59 23:59 Intake Total 100 1340 240 Output Total 1600 450 400 Balance -1500 890 -160 Meds/Results Medications: Active Medications Generic Name Dose Route Start Last Admin Trade Name Freq PRN Reason Stop Dose Admin Acetaminophen 650 mg 05/15/24 01:55 Acetaminophen 325 Mg Tablet PO Q4H PRN Mild Pain (1-3) or Fever Acetaminophen 500 mg 05/15/24 18:38 05/17/24 08:30 Acetaminophen 500 Mg Tablet PO 500 mg Q6H PRN Administration Pain Rated 1-3 Al Hydrox/Mg Hydrox/Simethicone 30 ml 05/15/24 01:55 Mag Hydrox/Al Hydrox/Simeth 30 Ml Udc PO QID PRN Dyspepsia Allopurinol 300 mg 05/15/24 08:00 05/17/24 08:31 Allopurinol 300 Mg Tablet PO 300 mg DAILY@0800 JAKE Administration Amlodipine Besylate 2.5 mg/ 7.5 mg 05/15/24 14:15 1
--- NOTE | 2024-05-17 12:20 | PC.NURSE ---
Pt refused ice because it hurts to bad pt also confused
[2024-05-17] MEDS: polyethylene glycoL 3350 17 GM POWD.PACK PO (13:07)
[2024-05-17] MEDS: hydroCHLOROthiazide 25 MG TABLET PO (13:08)
[2024-05-17] MEDS: SPIRONOLACTONE 25 MG TABLET PO (13:08)
[2024-05-17] MEDS: cloNIDine HCL 0.1 MG TABLET PO (13:08)
[2024-05-17] MEDS: OPTI-GEN TAB 1 TABLET PO ×2 (13:08→18:02)
[2024-05-17] MEDS: amLODIPine BESYLATE 2.5 MG, amLODIPine BESYLATE 5 MG 7.5 MG PO (13:09)
[2024-05-17] MEDS: LOSARTAN POTASSIUM 100 MG TABLET PO (13:09)
[2024-05-17] MEDS: FAMOTIDINE 20 MG TABLET PO ×2 (13:09→21:32)
[2024-05-17] MEDS: DOCUSATE SODIUM 100 MG CAPSULE PO ×2 (13:09→18:02)
[2024-05-17] MEDS: SENNA/DOCUSATE SODIUM TABLET 2 TAB PO ×2 (13:09→18:02)
[2024-05-17 13:10] VITALS: PULSE 76
[2024-05-17] MEDS: NEBIVOLOL HCL 5 MG TABLET 20 MG PO (13:10)
--- NOTE | 2024-05-17 13:37 | PC.NURSE ---
RN gave pt medications at 1305 because pts was AXO4 and was more aware of what was going on and was able to take medications with no issues.
[2024-05-17 16:00] VITALS: PULSE 66; RESP 18; TEMP 36.9; O2SAT 94
[2024-05-17] MEDS: SODIUM CHLORIDE 0.9% IV 1,000 ML 125 ML IV CONT (18:07)
--- NOTE | 2024-05-17 18:34 | PC.NURSE ---
RN called Dr. Dougherty because pts has been asking bendryl for itching. The IV order was discontinues so DR. Ferris informed RN to add 25mg po to help with the itching.
[2024-05-17] MEDS: diphenhydrAMINE HCl CAP 25 MG CAPSULE PO (19:02)
[2024-05-18] MEDS: hydrOXYzine pamoate 25 MG CAPSULE 50 MG PO (03:56)
[2024-05-18] MEDS: IBUPROFEN IV 800 MG/200 ML 800 MG/200 ML BAG 400 MG IVPB ×2 (05:40→21:02)
[2024-05-18 06:00] VITALS: BP 140/56; PULSE 70; RESP 16; TEMP 36.4; O2SAT 98
[2024-05-18 06:47] LABS: Basophils Percent Auto 0.3 % (0.2-1.2); Eosinophils Absolute Auto 0.3 K/mm3 (0-0.3); Eosinophils Percent Auto 3.4 % (0-4.4); Immature Granulocyte Absolute 0.03 K/mm3 (0.00-0.031); Immature Granulocyte Percent A 0.3 % (0-0.5); Immature Platelet Fraction Pct 3.1 % (0.9-11.2); Lymphocytes Absolute Auto 0.89 K/mm3 (0.9-3.2); Lymphocytes Percent Auto 10.4 % (18.3-44.2); Mean Corpuscular Hemoglobin 31.9 pg (26-34); Mean Corpuscular Volume 99.6 fl (80-100); Mean Platelet Volume 10.1 fl (7.4-10.4); Monocytes Percent Auto 11.1 % (2.6-8.5); Neutrophils Absolute Auto 6.4 K/mm3 (1.3-6.7); Neutrophils Percent Auto 74.5 % (45.5-73.1); Platelet Count Result 132 k/mm3 (150-375); Red Blood Count 2.51 M/mm3 (4.2-5.4); Red Cell Distribution Width 13.9 % (11.5-14.5); White Blood Count 8.6 K/mm3 (4.5-10.0)
[2024-05-18 07:04] LABS: Alanine Aminotransferase 12 U/L (6-35); Alkaline Phosphatase 100 U/L (38-126); Anion Gap 6 mmol/L (4-12); Aspartate Amino Transferase 29 U/L (14-36); Bilirubin,Total 0.8 mg/dL (0.2-1.3); Blood Urea Nitrogen 41 mg/dL (7-17); Calcium 8.8 mg/dL (8.4-10.2); Carbon Dioxide 25 mmol/L (22-30); Chloride 104 mmol/L (98-107); Estimated CRCL calculation 32 ml/min; Estimated Glomerular Filt Rate 47; Glucose 85 mg/dL (65-110); Magnesium 2.1 mg/dL (1.6-2.3); Potassium 3.6 mmol/L (3.4-5.0); Sodium 135 mmol/L (137-145)
[2024-05-18] MEDS: SENNA/DOCUSATE SODIUM TABLET 2 TAB PO ×2 (08:48→16:43)
[2024-05-18] MEDS: hydroCHLOROthiazide 25 MG TABLET PO (08:48)
[2024-05-18] MEDS: polyethylene glycoL 3350 17 GM POWD.PACK PO (08:48)
[2024-05-18 08:49] VITALS: PULSE 72
[2024-05-18] MEDS: NEBIVOLOL HCL 5 MG TABLET 20 MG PO (08:49)
[2024-05-18] MEDS: allopurinoL 300 MG TABLET PO (08:49)
[2024-05-18] MEDS: diphenhydrAMINE HCl CAP 25 MG CAPSULE PO (08:49)
[2024-05-18] MEDS: amLODIPine BESYLATE 2.5 MG, amLODIPine BESYLATE 5 MG 7.5 MG PO (08:49)
[2024-05-18] MEDS: SPIRONOLACTONE 25 MG TABLET PO (08:49)
[2024-05-18] MEDS: cloNIDine HCL 0.1 MG TABLET PO (08:49)
[2024-05-18] MEDS: LOSARTAN POTASSIUM 100 MG TABLET PO (08:49)
[2024-05-18] MEDS: FAMOTIDINE 20 MG TABLET PO ×2 (08:49→20:57)
[2024-05-18] MEDS: OPTI-GEN TAB 1 TABLET PO ×2 (08:49→16:43)
[2024-05-18] MEDS: DOCUSATE SODIUM 100 MG CAPSULE PO ×2 (08:49→16:43)
--- NOTE | 2024-05-18 09:06 | PC.NURSE ---
reached out to at 0826 regarding what looks like a rash to pt face, neck and chest. stated to hold 1000 ceftriaxone and to administer the benadryl that is PRN. Benadryl given and ceftriaxone not administered to pt and non administrated in MAR
[2024-05-18] MEDS: FONDAPARINUX SODIUM 2.5 MG/0.5 ML SYRINGE SUB-Q (09:15)
--- NOTE | 2024-05-18 13:11 | PM.IMPN ---
Progress Note: A&P Assessment and Plan (1) Intertrochanteric fracture of left femur: Qualifiers: Encounter type: initial encounter Fracture type: closed Fracture alignment: displaced Qualified Code(s): S72.142A - Displaced intertrochanteric fracture of left femur, initial encounter for closed fracture Code(s): S72.142A - Displaced intertrochanteric fracture of left femur, initial encounter for closed fracture Status: Acute (2) CKD (chronic kidney disease) stage 3, GFR 30-59 ml/min: Qualifiers: Chronic kidney disease stage 3 subtype: stage 3a (GFR 45-59) Qualified Code(s): N18.31 - Chronic kidney disease, stage 3a Code(s): N18.30 - Chronic kidney disease, stage 3 unspecified Status: Acute (3) Gout: Qualifiers: Gout site: unspecified site Gout etiology: unspecified cause Chronicity: chronic Presence of tophus: without tophus Qualified Code(s): M1A.9XX0 - Chronic gout, unspecified, without tophus (tophi) Code(s): M10.9 - Gout, unspecified Status: Acute (4) Essential hypertension: Code(s): I10 - Essential (primary) hypertension Status: Acute (5) GERD (gastroesophageal reflux disease): Qualifiers: Esophagitis presence: esophagitis presence not specified Qualified Code(s): K21.9 - Gastro-esophageal reflux disease without esophagitis Code(s): K21.9 - Gastro-esophageal reflux disease without esophagitis Status: Acute Plan This is an 89-year-old female who presented with mechanical fall. Patient sustained left intertrochanteric fracture orthopedic was consulted. Underwent insertion of trochanteric lidia left hip on 05/15/2024. Postop delirium multiple medications including benzodiazepines and opiates will taper off. Ibuprofen p.r.n.. Tylenol p.r.n. also found to have UTI. Delirium improving Hypertension on clonidine IV hydralazine p.r.n. spironolactone nebivolol. UTI started on ceftriaxone developed rash will switch to. Urine culture no growth CKD stage 3 Gout GERD DVT prop: Pt is on fondaparinux Code status do not resuscitate Disposition: Planned KEITH Subjective Date/time seen: 05/18/24 13:11 Interval history: Patient more alert and oriented working with therapy this a.m. discussed with the family. Rash on the face and neck reported Review of Systems Review of Systems: All systems reviewed & are unremarkable except as noted in HPI and below Exam Narrative: GENERAL: The patient is well developed, not in acute distress HEENT: Nonicteric sclerae, PERRLA, EOMI. Oropharynx clear. Moist mucous membranes. Conjunctivae appear well perfused. CHEST: Chest wall is nontender. HEART: Regular rate and rhythm without murmur, rubs, or gallops LUNGS: Clear to auscultation bilaterally. no respiratory distress ABDOMEN: Soft, positive bowel sounds, non-tender, no organomegaly. SKIN: No rash, no excessive bruising, petechiae, or purpura. NEUROLOGIC: Cranial nerves II-XII intact, alert and awake oriented to time place and person, no gross motor deficits EXTREMITIES: no edema, cyanosis or clubbing Objective Data Vital Signs Vital Signs: Vital Signs - 24 hr 05/17/24 16:00 05/17/24 20:00 05/18/24 06:00 Temperature 98.4 F 97.5 F L Pulse Rate 66 70 Respiratory Rate 18 16 Blood Pressure 140/56 L Pulse Oximetry 94 98 Oxygen Delivery Room Air 05/18/24 08:49 05/18/24 08:00 Temperature Pulse Rate 72 Respiratory Rate Blood Pressure Pulse Oximetry Oxygen Delivery Room Air Intake/Output Intake/Output: Intake & Output 05/15/24 05/16/24 05/17/24 05/18/24 23:59 23:59 23:59 23:59 Intake Total 100 2340 690 240 Output Total 1600 450 800 650 Balance -1500 1890 -110 -410 Meds/Results Medications: Active Medications Generic Name Dose Route Start Last Admin Trade Name Richardq PRN Reason Stop Dose Admin Acetaminophen 500 mg 05/15/24 18:38 05/17/24 18:03 Acetaminophen 500 Mg Tablet
[2024-05-18] MEDS: CIPROFLOXACIN 500 MG TAB PO ×2 (13:58→18:08)
[2024-05-18 14:00] VITALS: PULSE 94; RESP 18; TEMP 36.1; O2SAT 98
[2024-05-18] MEDS: ACETAMINOPHEN 500 MG TABLET PO (16:41)
[2024-05-18 20:55] VITALS: BP 174/78; PULSE 69; RESP 16; TEMP 37.3; O2SAT 90
[2024-05-19 06:00] VITALS: BP 158/84; PULSE 68; RESP 18; TEMP 36.9; O2SAT 96
[2024-05-19] MEDS: CIPROFLOXACIN 500 MG TAB PO (06:09)
[2024-05-19 06:25] LABS: Basophils Percent Auto 0.4 % (0.2-1.2); Eosinophils Absolute Auto 0.3 K/mm3 (0-0.3); Eosinophils Percent Auto 3.6 % (0-4.4); Hematocrit 24.2 % (37.0-47.0); Hemoglobin 7.6 g/dL (12.0-15.0); Immature Granulocyte Absolute 0.04 K/mm3 (0.00-0.031); Immature Granulocyte Percent A 0.5 % (0-0.5); Lymphocytes Absolute Auto 0.86 K/mm3 (0.9-3.2); Lymphocytes Percent Auto 11.4 % (18.3-44.2); Mean Corpuscular HGB Conc 31.4 g/dl (32-36); Mean Corpuscular Volume 98.8 fl (80-100); Mean Platelet Volume 10.4 fl (7.4-10.4); Monocytes Absolute Auto 0.9 K/mm3 (0.1-0.6); Monocytes Percent Auto 12.4 % (2.6-8.5); Neutrophils Absolute Auto 5.4 K/mm3 (1.3-6.7); Neutrophils Percent Auto 71.7 % (45.5-73.1); Platelet Count Result 143 k/mm3 (150-375); Red Blood Count 2.45 M/mm3 (4.2-5.4); Red Cell Distribution Width 13.9 % (11.5-14.5); White Blood Count 7.5 K/mm3 (4.5-10.0)
[2024-05-19 06:50] LABS: Alanine Aminotransferase 16 U/L (6-35); Albumin Level 3.1 g/dL (3.5-5.1); Alkaline Phosphatase 90 U/L (38-126); Anion Gap 7 mmol/L (4-12); Aspartate Amino Transferase 30 U/L (14-36); Bilirubin,Total 0.7 mg/dL (0.2-1.3); Blood Urea Nitrogen 37 mg/dL (7-17); Calcium 8.9 mg/dL (8.4-10.2); Carbon Dioxide 23 mmol/L (22-30); Chloride 105 mmol/L (98-107); Estimated CRCL calculation 35 ml/min; Estimated Glomerular Filt Rate 52; Glucose 98 mg/dL (65-110); Potassium 3.3 mmol/L (3.4-5.0); Sodium 135 mmol/L (137-145)
[2024-05-19 08:24] VITALS: PULSE 74
[2024-05-19] MEDS: amLODIPine BESYLATE 2.5 MG, amLODIPine BESYLATE 5 MG 7.5 MG PO (08:24)
[2024-05-19] MEDS: NEBIVOLOL HCL 5 MG TABLET 20 MG PO (08:24)
[2024-05-19] MEDS: SPIRONOLACTONE 25 MG TABLET PO (08:24)
[2024-05-19] MEDS: OPTI-GEN TAB 1 TABLET PO (08:24)
[2024-05-19] MEDS: polyethylene glycoL 3350 17 GM POWD.PACK PO (08:25)
[2024-05-19] MEDS: cloNIDine HCL 0.1 MG TABLET PO (08:25)
[2024-05-19] MEDS: DOCUSATE SODIUM 100 MG CAPSULE PO (08:25)
[2024-05-19] MEDS: FAMOTIDINE 20 MG TABLET PO (08:25)
[2024-05-19] MEDS: allopurinoL 300 MG TABLET PO (08:25)
[2024-05-19] MEDS: LOSARTAN POTASSIUM 100 MG TABLET PO (08:25)
[2024-05-19] MEDS: SENNA/DOCUSATE SODIUM TABLET 2 TAB PO (08:25)
[2024-05-19] MEDS: hydroCHLOROthiazide 25 MG TABLET PO (08:26)
[2024-05-19] MEDS: FONDAPARINUX SODIUM 2.5 MG/0.5 ML SYRINGE SUB-Q (08:27)
[2024-05-19] MEDS: POTASSIUM CHLORIDE 20 MEQ ER TABLET 40 MEQ PO (09:21)
[2024-05-19] MEDS: ACETAMINOPHEN 500 MG TABLET PO (09:21)
--- NOTE | 2024-05-19 11:20 | PM.DS ---
DS: Admitting Diagnosis Discharge Date 05/19/2024 Admitting Diagnosis Fall DS: Discharge Diagnosis Discharge Diagnosis (1) Intertrochanteric fracture of left femur: Qualifiers: Encounter type: initial encounter Fracture alignment: displaced Fracture type: closed Qualified Code(s): S72.142A - Displaced intertrochanteric fracture of left femur, initial encounter for closed fracture Code(s): S72.142A - Displaced intertrochanteric fracture of left femur, initial encounter for closed fracture Status: Acute (2) CKD (chronic kidney disease) stage 3, GFR 30-59 ml/min: Qualifiers: Chronic kidney disease stage 3 subtype: stage 3a (GFR 45-59) Qualified Code(s): N18.31 - Chronic kidney disease, stage 3a Code(s): N18.30 - Chronic kidney disease, stage 3 unspecified Status: Acute (3) Gout: Qualifiers: Chronicity: chronic Gout etiology: unspecified cause Gout site: unspecified site Presence of tophus: without tophus Qualified Code(s): M1A.9XX0 - Chronic gout, unspecified, without tophus (tophi) Code(s): M10.9 - Gout, unspecified Status: Acute (4) Essential hypertension: Code(s): I10 - Essential (primary) hypertension Status: Acute (5) GERD (gastroesophageal reflux disease): Qualifiers: Esophagitis presence: esophagitis presence not specified Qualified Code(s): K21.9 - Gastro-esophageal reflux disease without esophagitis Code(s): K21.9 - Gastro-esophageal reflux disease without esophagitis Status: Acute DS: Summary Hospital Course Hospital Course: This is an 89-year-old female who presented with mechanical fall. Patient sustained left intertrochanteric fracture orthopedic was consulted. Underwent insertion of trochanteric lidia left hip on 05/15/2024. Postop delirium multiple medications including benzodiazepines and opiates will taper off. Ibuprofen p.r.n.. Tylenol p.r.n. also found to have UTI. Delirium improving and back to baseline Hypertension on clonidine IV hydralazine p.r.n. spironolactone nebivolol. Amlodipine 7.5 mg daily UTI started on ceftriaxone developed rash will switch to ciprofloxacin. Urine culture no growth CKD stage 3 Gout GERD DVT prop: Pt is on fondaparinux Code status do not resuscitate Disposition: Planned [facility] and will be discharged to [facility] today Time Spent with Patient Time attestation: Total time spent providing and/or coordinating discharge services: 45 minutes Exam Narrative: GENERAL: The patient is well developed, not in acute distress HEENT: Nonicteric sclerae, PERRLA, EOMI. Oropharynx clear. Moist mucous membranes. Conjunctivae appear well perfused. CHEST: Chest wall is nontender. HEART: Regular rate and rhythm without murmur, rubs, or gallops LUNGS: Clear to auscultation bilaterally. no respiratory distress ABDOMEN: Soft, positive bowel sounds, non-tender, no organomegaly. SKIN: No rash, no excessive bruising, petechiae, or purpura. NEUROLOGIC: Cranial nerves II-XII intact, alert and awake oriented to time place and person, no gross motor deficits EXTREMITIES: no edema, cyanosis or clubbing DS: Data Data Completed and Pending Labs on day of discharge: Labs from last 24 hours 05/19/24 05:51 WBC 7.5 RBC 2.45 L Hgb 7.6 L Hct 24.2 L MCV 98.8 MCH 31.0 MCHC 31.4 L RDW 13.9 Plt Count 143 L MPV 10.4 Immature Gran % (Auto) 0.5 Neut % (Auto) 71.7 Lymph % (Auto) 11.4 L Colbert % (Auto) 12.4 H Eos % (Auto) 3.6 Baso % (Auto) 0.4 Lymph # (Auto) 0.86 L Colbert # (Auto) 0.9 H Eos # (Auto) 0.3 Baso # (Auto) 0.0 Abs Immat Gran (auto) 0.04 H Absolute Neuts (auto) 5.4 Absolute Nucleated RBC 0.000 Nucleated RBC % 0.0 Sodium 135 L Potassium 3.3 L Chloride 105 Carbon Dioxide 23 Anion Gap 7 BUN 37 H Creatinine 1.00 Estim Creat Clear Calc 35 Estimated GFR 52 L Glucose 98 Calcium 8.9 Magnesium 2.0 Total Bilirubin 0.7 AST 30 ALT 16 Alkalin
[2024-05-19 14:00] VITALS: PULSE 59; RESP 18; TEMP 36.6; O2SAT 100
== END 2024-05-19 14:55 | DRG 481 ==
PROVIDERS: Family Medicine; Orthopaedic Surgery; Admitting Provider Internal Medicine; PCP Family Medicine; Visit Provider Internal Medicine
PROC: 0QS734Z Reposition Left Upper Femur with Internal Fixation Device, Percutaneous Approach (ICD-10-PCS; CPT 27245; principal; 2024-05-15 16:30)
DX: S72.142A Displaced intertrochanteric fracture of left femur, initial encounter for closed fracture (principal); F05 Delirium due to known physiological condition; N39.0 Urinary tract infection, site not specified; I12.9 Hypertensive chronic kidney disease with stage 1 through stage 4 chronic kidney disease, or unspecified chronic kidney disease; N18.31 Chronic kidney disease, stage 3a; L27.1 Localized skin eruption due to drugs and medicaments taken internally; T36.1X5A Adverse effect of cephalosporins and other beta-lactam antibiotics, initial encounter; M10.9 Gout, unspecified; K21.9 Gastro-esophageal reflux disease without esophagitis; I73.9 Peripheral vascular disease, unspecified; H35.3120 Nonexudative age-related macular degeneration, left eye, stage unspecified; H35.3210 Exudative age-related macular degeneration, right eye, stage unspecified; Z90.49 Acquired absence of other specified parts of digestive tract; Z90.710 Acquired absence of both cervix and uterus; Z90.722 Acquired absence of ovaries, bilateral; Z98.42 Cataract extraction status, left eye; Z98.41 Cataract extraction status, right eye; Z96.612 Presence of left artificial shoulder joint; Z87.891 Personal history of nicotine dependence; Z85.828 Personal history of other malignant neoplasm of skin; W18.30XA Fall on same level, unspecified, initial encounter; Z66 Do not resuscitate
CPT/HCPCS: 36415; 80048; 80053; 81001; 83735; 85025; 85027; 85055; 85610; 85730; 87086; 93308; 97110; 97112; 97162; 97166; 97530; 97535; 99199; A9270; C1713; J0360; J0690; J0696; J1100; J1171; J1200; J1652; J1741; J2003; J2270; J2371; J2405; J2704; J3010; J7030; J7120